=== PATIENT | female | born 1990 | race African-American/Black ===

== ENCOUNTER 2017-09-10 21:53 | Emergency (ER) | payer OTHER ==
[~2017-09-10] VITALS: Ht 157.5 cm; Wt 65.3 kg
[2017-09-10 22:13] LABS: URINE BILIRUBIN NEGATIVE (Negative); URINE BLOOD 1+ (Negative); URINE CLARITY CLEAR; URINE COLOR YELLOW; URINE GLUCOSE-RANDOM* NEGATIVE (Negative); URINE KETONES NEGATIVE (Negative); URINE NITRITE-REFLEX NEGATIVE (Negative); URINE PROTEIN (DIPSTICK) NEGATIVE (Negative); URINE SPECIFIC GRAVITY >= 1.030 (1.005-1.035); URINE UROBILINOGEN 0.2 E.U./dl (0.2-1.0)
[2017-09-10 22:22] LABS: URINE LEUKOCYTES-REFLEX 1+ (Negative)
[2017-09-10 22:25] LABS: MUCUS 0-3 Light strn/LPF (None Seen); SQUAMOUS >10 Many /LPF (0-3)
[2017-09-10 22:26] LABS: BACTERIA-REFLEX 1-9 Few /HPF (None Seen); CASTS None Seen /LPF (None Seen); CRYSTALS None Seen /LPF (None Seen); URINE RBC 0-2 Rare /HPF (0-2)
[2017-09-10 22:52] LABS: ABSOLUTE NEUTROPHILS 4.8 thou/uL (1.4-8.2); BASOPHILS 0.2 % (0.0-2.0); EOSINOPHILS 6.2 % (0.0-3.0); HEMATOCRIT 39.2 % (37.0-47.0); HEMOGLOBIN 13.6 gm/dL (12.0-15.0); LYMPHOCYTES 25.2 % (24.0-44.0); MCH 28.2 pg (26.0-34.0); MCHC 34.7 g/dL (28.0-37.0); MCV 81.3 fL (80.0-100.0); MONOCYTES 7.5 % (1.0-8.0); PLATELET COUNT 279 thou/uL (150-400); POLYS 60.9 % (36.0-66.0); RBC 4.82 mil/uL (4.20-5.00); RDW 11.8 % (10.5-14.5); WBC 7.8 thou/uL (4.0-11.0)
[2017-09-10 22:57] LABS: CREATININE 1.1 mg/dL (0.6-1.0); POTASSIUM 3.7 mmol/L (3.5-5.1)
[2017-09-10 23:03] LABS: ALBUMIN 3.9 g/dL (3.4-5.0); TOTAL BILIRUBIN 0.3 mg/dL (<0.1-1.0); TOTAL PROTEIN 7.7 g/dL (6.4-8.2)
[2017-09-10 23:05] LABS: URINE BILIRUBIN NEGATIVE (Negative); URINE BLOOD NEGATIVE (Negative); URINE CLARITY CLEAR; URINE COLOR YELLOW; URINE GLUCOSE-RANDOM* NEGATIVE (Negative); URINE KETONES NEGATIVE (Negative); URINE NITRITE-REFLEX NEGATIVE (Negative); URINE PROTEIN (DIPSTICK) NEGATIVE (Negative); URINE SPECIFIC GRAVITY 1.025 (1.005-1.035)
[2017-09-10 23:06] LABS: URINE LEUKOCYTES-REFLEX TRACE (Negative)
[2017-09-10] MEDS ORDERED: MIRALAX17 GM PO (23:53)
[2017-09-10] MEDS ORDERED: SENNA S TABLET1 EACH PO (23:53)
[2017-09-10] MEDS ORDERED: KEFLEX500 M1 PO (23:53)
[2017-09-10] MEDS ORDERED: DIFLUCAN200 MG PO (23:53)
[2017-09-11 00:01] VITALS: BP 121/72
[2017-09-12 13:10] LABS: NEISSERIA GONORRHEA-PCR Negative (Negative)
== END 2017-09-11 00:02 | disposition home or self-care (01) ==
LOC: ER 21:53
PROVIDERS: Emergency Medicine
DX: N39.0 Urinary tract infection, site not specified (principal)

== ENCOUNTER 2017-10-31 21:46 | Emergency (ER) | payer OTHER ==
[~2017-10-31] VITALS: Ht 157.5 cm; Wt 66.2 kg
[~2017-10-31 21:46] MED LIST: DIFLUCAN200 MG PO; KEFLEX500 M1 PO; MIRALAX17 GM PO; SENNA S TABLET1 EACH PO
[2017-10-31 22:07] LABS: URINE BILIRUBIN NEGATIVE (Negative); URINE BLOOD TRACE (Negative); URINE CLARITY CLEAR; URINE COLOR YELLOW; URINE GLUCOSE-RANDOM* NEGATIVE (Negative); URINE KETONES NEGATIVE (Negative); URINE LEUKOCYTES TRACE (Negative); URINE NITRITE NEGATIVE (Negative); URINE PROTEIN (DIPSTICK) TRACE (Negative)
[2017-10-31 23:20] VITALS: BP 115/70
[2017-11-04 15:07] LABS: NEISSERIA GONORRHEA-PCR Negative (Negative)
== END 2017-10-31 23:21 | disposition home or self-care (01) ==
LOC: ER 21:46
PROVIDERS: Emergency Medicine
DX: N76.0 Acute vaginitis (principal)